=== PATIENT | female | born 1960 | race Caucasian/White ===

== ENCOUNTER 2017-06-11 14:59 | Emergency (ER) | payer MEDICARE, OTHER ==
[2017-06-11 15:09] VITALS: BMI 27.4
[2017-06-11] MEDS ORDERED: Sodium Chloride 0.9% 1,000 ML IV STA (15:16)
[2017-06-11 15:18] VITALS: BP 136/82; PULSE 82; TEMP 98.3; O2SAT 98
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
--- NOTE | 2017-06-11 15:56 | RAD ---
HISTORY: dizziness COMPARISON: 05/11/2015 FINDINGS: LUNGS: No active pulmonary disease. PLEURA: No significant pleural effusion identified, no pneumothorax apparent. CARDIOVASCULAR: Normal. OSSEOUS STRUCTURES: No significant abnormalities. VISUALIZED UPPER ABDOMEN: Normal. OTHER FINDINGS: None. IMPRESSION: No active disease.
[2017-06-11 16:19] LABS: ALB/GLOB RATIO 1.4 (1.1-1.8); ALBUMIN 4.6 g/dL (3.0-4.8); ALT/SGPT 34 U/L (7-56); AST/SGOT 25 U/L (14-36); BLOOD UREA NITROGEN 14 mg/dL (7-21); CALCIUM 10.5 mg/dL (8.4-10.5); GFR AFRICAN-AMERICAN > 60; GFR NON-AFRICAN AMERICAN > 60
[2017-06-11 16:21] LABS: BASO # 0.02 K/mm3 (0.0-2.0); BASO % 0.3 % (0.0-3.0); EOS # 0.2 (0.0-0.7); EOS % 2.4 % (1.5-5.0); GRAN # 3.83 (1.4-6.5); GRAN % 56.9 % (50.0-68.0); LYMPH # 2.4 (1.2-3.4); LYMPH % 35.6 % (22.0-35.0); MEAN CELL VOLUME 86.3 fl (80.0-105.0); MEAN CORPUSCULAR HEMOGLOBIN 28.6 pg (25.0-35.0); MEAN CORPUSCULAR HGB CONC 33.2 g/dl (31.0-37.0); MEAN PLATELET VOLUME 9.8 fl (7.0-11.0); MONO # 0.3 (0.1-0.6); MONO % 4.8 % (1.0-6.0); RBC 4.54 10^6/uL (3.5-6.1); RED CELL DISTRIBUTION WIDTH 12.1 % (11.5-14.5); WHITE BLOOD COUNT 6.7 10^3/ul (4.5-11.0)
[2017-06-11 16:29] LABS: TROPONIN I < 0.01 ng/mL
[2017-06-11 16:58] VITALS: RESP 19
--- NOTE | 2017-06-13 10:43 | CARD ---
APPROVED REPORT EKG Measurement Heart [id number] <Conclusion> Normal sinus rhythm Normal ECG
== END 2017-06-11 17:00 | disposition left against medical advice (07) ==
LOC: ED 14:59
DX: R42 Dizziness and giddiness (principal); R07.9 Chest pain, unspecified; I10 Essential (primary) hypertension
CPT/HCPCS: 71045; 80053; 82550; 84484; 85025; 93005; 96374; 96375; 99285; J2405; J2765; J7040